=== PATIENT | female | born 1950 | race Caucasian/White ===

== ENCOUNTER 2020-10-13 05:45 | Day surgery (SDC) | payer OTHER, MEDICARE ==
[~2020-10-13] VITALS: Ht 172.7 cm; Wt 80.0 kg
[~2020-10-13 05:45] MED LIST: ASPIRIN EC325 MG PO; ATIVAN1 MG PO; COZAAR25 MG PO; CYTOMEL5 MCG PO; ESTRACE42.5 GM VAGINAL; FENOFIBRATE160 MG PO; GLUCOSAMINE CH1 EAC7 PO; LEVOTHYROXINE112 MCG PO; LIOTHYRONINE SO5 MCG PO; MAGNESIUM CITR100 MG PO; METOPROLOL SUCC50 MG PO; MULTIVITAMINS1 EAC8 PO; OMEGA 3 1,0001 EACH PO; OMEPRAZOLE20 MG PO; OSTEO BI-FLEX1 EAC2 PO; QVAR INH; QVAR7.3 G1 INH; SINGULAIR10 MG PO; ZETIA10 MG PO
[2020-10-13] MEDS ORDERED: HYDROCODON-ACE1 EA10 PO (07:45)
--- NOTE | 2020-10-13 07:49 | NUR ---
10/13/20 0749 Olivia Viramontes 0741- PT ARRIVES TO PACU NONAROUSABLE TO NOXIOUS STIMULI. PT SNORING AND NEEDING A JAW LIFT TO MAINTAIN PATENT AIRWAY. RESP EVEN AND UNLABORED. OXYGEN SAT HIGH 90'S TO 100% ON 6L VIA MASK.
--- NOTE | 2020-10-13 08:25 | NUR ---
PATIENT BACK TO DAYSURGERY, PATIENT AWAKE AND ORIENTED. EATING SNACKS AND DRINKING FLUIDS, NO NAUSEA. RATES PAIN 2/10 ON PAINS SCALE. DRESSING TO LEFT KNEE C/D/I, STRONG PEDAL PULSE. ICE IN PLACE. AT BEDSIDE, CALL LIGHT WITHIN REACH.
--- NOTE | 2020-10-13 08:52 | NUR ---
GAVE ENCURAGEMENT AND BLESSING TO PT SHE WAS BEING WHEELED TO OR. OLE WAITING IN RM. SPENT TIME WITH HIM, OUTLINED TODAY'S PROCESS. HE WILL REMAIN IN RM, AWAITING PT'S RETURN FROM PACU. HE REQUESTED PRAYER, AND WILL FOLLOW NEEDED
--- NOTE | 2020-10-13 09:20 | NUR ---
PATIENT UP TO BATHROOM, HAD REFUSED PAIN MEDICATION FOR PAIN 2/10 AT REST. ENCOURAGED TO TAKE PAIN MEDICATION, AND EDUCATED ON PAIN WORSENING WITH ACTIVITY. AFTER PATIENT WENT TO THE BATHROOM, PAIN 3/10 ON PAIN SCALE AND CONTANT. PATIENT AGREED TO PAIN MEDICAITON. ADMINISTERED PAIN MEDICAITON PER JUL. DRESSING TO LEFT KNEE C/D/I. STRONG PEDAL PULSE.
--- NOTE | 2020-10-13 10:08 | NUR ---
PROVIDED PATIENT WITH DISCHARGE EDUCATION. WENT OVER IN DETAIL DISCHARGE PACKET FOR KNEE SCOPE FROM DR. BARRIOS OFFICE. PROVIDED ON-CALL CELL PHONE IF CONCERNS [place] OVER WEEKEND. PATIENT DRESSING C/D/I, PROVIDED FRESH ICE PACK FOR HOME. RATES PAIN 1/10 ON PAIN SCALE, NO NAUSEA. VOIDED WELL. PASTOR BARBER REQUESTED PATIENT BE ABLE TO VISIT HER MOM ON MEDSURG. OKAYED WITH CONSTRUCTION SUPERINTENDENT, PASTOR BARBER WILL PROVIDE PATIENT RIDE TO MED-SURG AND THEN PROVIDE A RIDE TO POV TO GO HOME. WILL BE WAITING IN THE FRONT WITH CAR.
--- NOTE | 2020-10-16 07:04 | OR ---
[facility] [address], [place] [address] Signed DATE OF OPERATION: 10/13/2020 SURGEON: Smita Hudson MD PREOPERATIVE DIAGNOSIS: Medial meniscus tear, left knee. POSTOPERATIVE DIAGNOSIS: Medial meniscus tear, left knee. PROCEDURE PERFORMED: Left knee arthroscopy with partial medial meniscectomy. WELDING EQUIPMENT REPAIRER: None. ANESTHESIA: General. BLOOD LOSS: Minimal. BRIEF HISTORY: Ranulfo is a 69-year-old female with pain and locking in her knee. MRI was consistent with medial meniscus tear. Risks and benefits of operative treatment discussed with her and she elected to proceed. DESCRIPTION OF PROCEDURE: Once consent was obtained, she was taken to the operating room after adequate anesthesia. She was placed on operating room table. The right leg was flexed, abducted, and externally rotated on a well-padded leg colin. The left was placed in well-padded proximal thigh leg colin with no tourniquet. The portal sites were then pre-injected using 0.25% Marcaine with epinephrine under an alcohol prep. The leg was then prepped and draped in a standard sterile fashion. Standard inferior lateral and superolateral portals were made and the scope was introduced in the knee. ARTHROSCOPIC FINDINGS: Significant synovitis was noted throughout the knee. 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 Medial and lateral gutters were clear with marginal osteophytes on both sides. ACL and PCL were intact. Lateral Electronically Signed By: SMITA HUDSON MD 10/16/20 0704 PATIENT NAME: RANULFO ESTRADA OPERATIVE REPORT DATE OF : 54 REPORT #: [id number] PHYSICIAN: SMITA HUDSON MD PCP: MAYA ROBERT MD REPORT IS CONFIDENTIAL AND NOT TO BE RELEASED WITHOUT AUTHORIZATION [facility] [address], [place] [address] Signed compartment was intact for the most part with some grade 1 to grade 2 chondromalacia on the femur. Medial compartment showed areas of grade 3 to some grade 4 chondromalacia on the femur, grade 3 on the tibial side. There was a complex tear extending from the posterior medial corner all around to the posterior horn. Standard inferomedial portal was made after localization using a spinal needle. The straight biter was then used to trim the meniscus tear back to a stable rim anteriorly and posteriorly. The shaver was then used to smooth this and all debris was evacuated. The chondral flaps that were unstable were removed as well and the scope was withdrawn from the knee. Portals were then closed with 3-0 nylon. The knee was injected with 60 mg Toradol at the end of the case. Wounds were dressed with Adaptic, ABD, and an Saulo wrap. She tolerated the procedure well. All sponge, needle, and instrument counts were correct. Smita Hudson MD BA/MERISSAL /[id number] Copies: ~ Electronically Signed By: SMITA HUDSON MD 10/16/20 0704 PATIENT NAME: RANULFO ESTRADA OPERATIVE REPORT DATE OF : 54 REPORT #: [id number] PHYSICIAN: SMITA HUDSON MD PCP: MAYA ROBERT MD REPORT IS CONFIDENTIAL AND NOT TO BE RELEASED WITHOUT AUTHORIZATION
== END 2020-10-13 10:08 | disposition home or self-care (01) ==
LOC: DS 05:45
PROVIDERS: ATTEND Specialist
PROC: 0SBD4ZZ Excision of Left Knee Joint, Percutaneous Endoscopic Approach (ICD-10-PCS; principal; 2020-10-13 06:45)
DX: S83.242A Other tear of medial meniscus, current injury, left knee, initial encounter (principal); M22.42 Chondromalacia patellae, left knee
CPT/HCPCS: 01400; J0690; J1100; J1885; J2001; J2405; J2704; J3010; J7121

== ENCOUNTER 2025-03-17 12:55 | Day surgery (SDC) | payer MEDICARE, OTHER ==
[~2025-03-17] VITALS: Ht 170.2 cm; Wt 76.0 kg
[~2025-03-17 12:55] MED LIST changes: +BAYER CHEWABLE81 MG PO; +CEFAZOLIN SODIUM 2 GM in SODIUM CHLORIDE 0.9% 100 ML IV SCH; +CRANBERRY250 MG PO; +GABAPENTIN300 MG PO; +HYDROCODON-ACE1 EA10 PO; +HYZAAR 100-12.1 EACH PO; +IBLOOD GLUCOSE TEST STRIP 1 EA TEST VI PRN; +LACTATED RINGER'S 1,000 ML IV SCH; +LIDOCAINE HCL 1% 5 ML SDV INJ ONE; +LOSARTAN POTASS25 MG PO; +OXYCODONE HCL5 MG PO; +SENNA LAX8.6 MG PO; +XARELTO10 MG PO
[2025-03-17 13:12] VITALS: BP 152/71
[2025-03-17] MEDS ORDERED: LIDOCAINE HCL 2% 5 ML SDV ONE (13:53)
--- NOTE | 2025-03-17 14:38 | NUR ---
03/17/25 1438 Luz Manuel 1433-PATIENT ARRIVED TO PACU ON 6L MASK RR EVEN NONAROUSABLE LAYING LEFT LATERAL ABDOMEN SOFT IVF INFUSING. SR HR 60'S.
[2025-03-17 15:16] VITALS: BP 130/53
--- NOTE | 2025-03-18 12:57 | OR ---
[facility] [address], [place] [address] Signed DATE OF OPERATION: 03/17/2025 SURGEON: Vick Mirza MD PREOPERATIVE DIAGNOSIS: History of polyp, eight years ago ([place]). POSTOPERATIVE DIAGNOSIS: Minimal diverticular change of sigmoid. PROCEDURE: Total colonoscopy to cecum. ANESTHESIA: Propofol infusion, Chad Braden CRNA. INDICATION: This 74-year-old white woman is a patient of Patricia Banegas. She underwent colonoscopy eight years ago in [place], where she was found to have one polyp. She now has constipation, which she manages primarily with increased fiber. She has been identified as having small intestine bacterial overgrowth syndrome and was treated with rifaximin antibiotic. Her symptoms of bloating and gas have improved quite a bit. She is now referred for colonoscopy on the basis of her prior history of polyp and interval time since colonoscopy. She has had no bleeding, diarrhea, or constipation of late and has no family history of colon cancer. She understands the risk of colonoscopy including, but not limited to bleeding, infection, and perforation and wished to proceed. FINDINGS: The prep was good. Complete colonoscopy was undertaken of the cecum with full intubation of the cecum. There was no evidence of polyps or colitis. She did have a few scattered diverticula of the sigmoid and left colon. DESCRIPTION OF PROCEDURE: The patient was brought to the endoscopy suite and placed in lateral decubitus position, given intravenous sedation to the point of slurred speech and nystagmus. Digital rectal examination was normal. An Olympus video colonoscope was passed in the rectum and manipulated throughout the colon ultimately intubating the cecum itself. The ileocecal valve and appendiceal Electronically Signed By: VICK MIRZA MD 03/18/25 1257 PATIENT NAME: RANULFO ESTRADA OPERATIVE REPORT DATE OF : 54 REPORT #: [id number] PHYSICIAN: VICK MIRZA MD PCP: PATRICIA BANEGAS PAC REPORT IS CONFIDENTIAL AND NOT TO BE RELEASED WITHOUT AUTHORIZATION [facility] [address], [place] [address] Signed orifice were normal. The scope was carefully withdrawn from that point and examination throughout showed no sign of abnormality into the sigmoid where there were few scattered small diverticula. The rectum was normal as well. The scope was removed. At conclusion of procedure, the patient was taken to recovery room in good condition. CONCLUDING DIAGNOSIS: Minimal diverticula. No sign of polyp. PLAN: Recommend repeat colonoscopy in 10 years, sooner if symptoms should develop. I would recommend a high-fiber diet too. She will return to the ongoing care of Patricia Banegas. MD SAEID Akhtar/JHON /[id number] cc: Patricia Banegas PA-C Copies: ~ Electronically Signed By: VICK MIRZA MD 03/18/25 1257 PATIENT NAME: RANULFO ESTRADA OPERATIVE REPORT DATE OF : 54 REPORT #: [id number] PHYSICIAN: VICK MIRZA MD PCP: PATRICIA BANEGAS PAC REPORT IS CONFIDENTIAL AND NOT TO BE RELEASED WITHOUT AUTHORIZATION
== END 2025-03-17 15:20 | disposition home or self-care (01) ==
LOC: DS 12:55
PROVIDERS: ATTEND Surgery
PROC: 0DJD8ZZ Inspection of Lower Intestinal Tract, Via Natural or Artificial Opening Endoscopic (ICD-10-PCS; principal; 2025-03-17 14:00)
DX: Z12.11 Encounter for screening for malignant neoplasm of colon (principal); K57.30 Diverticulosis of large intestine without perforation or abscess without bleeding; K63.8219 Small intestinal bacterial overgrowth, unspecified; K59.09 Other constipation; I10 Essential (primary) hypertension; E03.9 Hypothyroidism, unspecified; Z86.0100 Personal history of colon polyps, unspecified; Z79.890 Hormone replacement therapy; Z79.899 Other long term (current) drug therapy; Z88.1 Allergy status to other antibiotic agents; Z88.8 Allergy status to other drugs, medicaments and biological substances; Z95.0 Presence of cardiac pacemaker; Z95.828 Presence of other vascular implants and grafts; Z90.710 Acquired absence of both cervix and uterus
CPT/HCPCS: 00811; J0688; J2003; J2704; J7121